=== PATIENT | female | born 1985 | race American Indian/Alaskan Native ===

== ENCOUNTER 2019-04-13 18:05 | Emergency (ER) | payer SELFPAY ==
[2019-04-13 18:51] VITALS: BP 116/73
--- NOTE | 2019-04-13 18:51 | Event Note ---
ED Screening Note ED Screening Note: presents for a fall that occurred just [employer]ALOG[employer]KER slipped and fell down the steps right elbow and lower back pain and lower abd pain ambulatory pt is currently 12 weeks denies any vaginal bleeding This initial assessment/diagnostic orders/clinical plan/treatment(s) is/are subject to change based on patients health status, clinical progression and re- assessment by fellow clinical providers in the ED. Further treatment and workup at subsequent clinical providers discretion. Patient/guardian urged not to elope from the ED as their condition may be serious if not clinically assessed and managed. Initial orders include: US abdomen, and evaluation
--- NOTE | 2019-04-13 19:53 | Ultrasound Report ---
ULTRASOUND OBSTETRIC INDICATION / CLINICAL INFORMATION: lower abd pain after fall. TECHNIQUE: Transabdominal transvaginal. COMPARISON: None available. FINDINGS: GESTATIONAL SAC: Well-defined oval shape and intrauterine in location. YOLK SAC: No significant abnormality. EMBRYO/FETUS: No significant abnormality. - [place]-Rump Length = 5.5 cm = 12 weeks, 1 day(s). - Heart Rate, beats per minute (if present) = 177 ADNEXA: Obscured FREE FLUID: None. ADDITIONAL FINDINGS: None. IMPRESSION: 1. Single, living intrauterine with estimated sonographic age of 12 weeks, 1 day(s). Signer Name: Gato Saucedo MD Signed: 04/13/2019 7:48 PM Workstation Name: [email or web address]
[2019-04-13] MEDS ORDERED: TYLENOL PO ONE (22:00)
--- NOTE | 2019-04-13 22:07 | Emergency Department Report ---
ED General Adult HPI - General Chief complaint: Fall Stated complaint: 12 WKS FALL INJURY/PAIN Time Seen by Provider: 04/13/19 18:49 Source: patient Mode of arrival: Ambulatory Limitations: No Limitations - History of Present Illness Initial comments: This is a 33-year-old female presenting at 12 weeks gestation complaining of lower back pain status post fall earlier today. He states that she was coming down the steps when she accidentally sleep and fell on her back down about 18 steps. Patient states she's been having some soreness to her back muscles since then. Patient denies vaginal bleeding or leaking or abdominal pain. - Related Data Previous Rx's Medication Instructions Recorded Last Taken Type Acetaminophen [Acetaminophen ER 650 mg PO Q8HR PRN #20 tablet.er 04/13/19 Unknown Rx TAB] Allergies Allergy/AdvReac Type Severity Reaction Status Date / Time No Known Allergies Allergy Unverified 04/13/19 18:07 ED Review of Systems ROS: Stated complaint: 12 WKS FALL INJURY/PAIN Other details as noted in HPI Comment: All other systems reviewed and negative ED Past Medical Hx - Past Medical History Previous Medical History?: No - Surgical History Past Surgical History?: No - Social History Smoking Status: Never Smoker Substance Use Type: None - Medications Home Medications: Home Medications Medication Instructions Recorded Confirmed Last Taken Type Acetaminophen [Acetaminophen ER 650 mg PO Q8HR PRN #20 tablet.er 04/13/19 Unknown Rx TAB] ED Physical Exam - General Limitations: No Limitations General appearance: alert, in no apparent distress - Head Head exam: Present: atraumatic, normocephalic - Eye Eye exam: Present: normal appearance, PERRL - ENT ENT exam: Present: mucous membranes moist - Neck Neck exam: Present: normal inspection, full ROM. Absent: tenderness - Respiratory Respiratory exam: Present: normal lung sounds bilaterally. Absent: respiratory distress, wheezes, rales, chest wall tenderness - Cardiovascular Cardiovascular Exam: Present: regular rate, normal rhythm. Absent: systolic murmur, diastolic murmur, rubs, gallop - GI/Abdominal GI/Abdominal exam: Present: soft, normal bowel sounds. Absent: distended, tenderness, guarding, rebound - Extremities Exam Extremities exam: Present: normal inspection, full ROM. Absent: tenderness - Back Exam Back exam: Present: normal inspection, full ROM. Absent: tenderness, CVA tenderness (R), CVA tenderness (L) - Neurological Exam Neurological exam: Present: alert, oriented X3, CN II-XII intact, normal gait - Psychiatric Psychiatric exam: Present: normal affect, normal mood - Skin Skin exam: Present: warm, dry, intact, normal color. Absent: rash ED Course Vital Signs 04/13/19 18:50 Temperature 98.8 F Pulse Rate 92 H Respiratory 16 Rate Blood Pressure 116/73 O2 Sat by Pulse 99 Oximetry ED Medical Decision Making - Radiology Data Radiology results: report reviewed, image reviewed TECHNIQUE: Transabdominal transvaginal. COMPARISON: None available. FINDINGS: GESTATIONAL SAC: Well-defined oval shape and intrauterine in location. YOLK SAC: No significant abnormality. EMBRYO/FETUS: No significant abnormality. - [place]-Rump Length = 5.5 cm = 12 weeks, 1 day(s). - Heart Rate, beats per minute (if present) = 177 ADNEXA: Obscured FREE FLUID: None. ADDITIONAL FINDINGS: None. IMPRESSION: 1. Single, living intrauterine with estimated sonographic age of 12 weeks, 1 day(s). Signer Name: Gato Saucedo MD Signed: 04/13/2019 7:48 PM Workstation Name: [id number] Transcribed By: WG Dictated By: Gato Saucedo MD Electronically Authenticated By: Gato Saucedo MD Signed Date/Time: 04/13/191947 - Medical Decision Making 33-year-old female presents with muscle pain status post fall Patient received Tylenol in the ED. Ultrasound shows no acute findings, discussed heat therapy 3 times a day to the lower back Discussed findings with the patient. Discussed the patient's take Tylenol 3 times a day at home. Discussed follow-up with [facility] in 3-5 days. Final vital signs are normal patient is in no acute distress. Critical care attestation.: If time is entered above; I have spent that time in minutes in the direct care of this critically ill patient, excluding procedure time. ED Disposition Clinical Impression: Strain of muscle, fascia and tendon of lower back, initial encounter Disposition: - TO HOME OR SELFCARE Is pt being admited?: No Does the pt Need Aspirin: No Condition: Stable Instructions: Muscle Strain (ED) Additional Instructions: Make sure to follow up with the primary care physician as discussed. Take all your medications as you've been prescribed. If you have any worsening symptoms or develop new symptoms please return to ED immediately. Prescriptions: Acetaminophen [Acetaminophen ER TAB] 650 mg PO Q8HR PRN #20 tablet.er PRN Reason: Pain Referrals: PRIMARY CARE,MD [Primary Care Provider] - 3-5 Days [facility] [Provider Group] - 3-5 Days Forms: Accompanied Note, Work/School Release Form(ED) Time of Disposition: 22:14
== END 2019-04-13 22:41 | disposition home or self-care (01) ==
LOC: ED 18:05
DX: O9A.211 Injury, poisoning and certain other consequences of external causes complicating pregnancy, first trimester (principal); S39.012A Strain of muscle, fascia and tendon of lower back, initial encounter; Z3A.12 12 weeks gestation of pregnancy; W19.XXXA Unspecified fall, initial encounter; Y93.89 Activity, other specified; Y92.89 Other specified places as the place of occurrence of the external cause; Y99.8 Other external cause status
CPT/HCPCS: 76801